=== PATIENT | female | born 1975 | race Caucasian/White ===

== ENCOUNTER 2017-12-02 17:44 | Emergency (ER) | payer OTHER, SELFPAY ==
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
== END 2017-12-02 19:53 | disposition home or self-care (01) ==
LOC: ERS 17:44
DX: R07.89 Other chest pain (principal); F17.210 Nicotine dependence, cigarettes, uncomplicated; I10 Essential (primary) hypertension; Z86.73 Personal history of transient ischemic attack (TIA), and cerebral infarction without residual deficits; V43.52XA Car driver injured in collision with other type car in traffic accident, initial encounter; W22.11XA Striking against or struck by driver side automobile airbag, initial encounter
CPT/HCPCS: 71046

== ENCOUNTER 2017-12-26 22:34 | Inpatient (IN) | payer SELFPAY ==
[2017-12-26 23:25] LABS: #Lymphocytes 2.9 thou/uL (1.20-3.40); #Monocytes 0.9 thou/uL (0.11-0.59); #Neutrophils 3.7 thou/uL (1.40-6.50); %Basophils 0.5 % (0.0-1.0); %Eosinophils 0.4 % (0.0-10.0); %Lymphocytes 38.9 % (21.0-51.0); %Monocytes 11.6 % (0.0-10.0); %Neutrophils 48.6 % (42.0-75.0); Hemoglobin 14.2 g/dL (12.0-16.0); Mean Corpuscular HGB CONC 32.8 g/dL (32.0-36.0); Mean Corpuscular Hemoglobin 30.3 pg (27.0-31.0); Mean Corpuscular Volume 92.3 fl (81.0-99.0); Mean Platelet Volume 7.4 fL (7.4-10.4); Platelet Count 220 thou/uL (130-400); RBC Distribution Width 11.6 % (11.5-14.5); Red Blood Cell (RBC) Count 4.69 mill/uL (4.20-5.40); White Blood Cell (WBC) Count 7.5 thou/uL (4.8-10.8)
--- NOTE | 2017-12-26 23:33 | RAD ---
PORTABLE CHEST: Comparison: 06-16-15 FINDINGS: Heart size and mediastinum are within normal limits. The lungs are clear of infiltrates. There are no significant bony findings. IMPRESSION: No active intrathoracic disease. POS: [facility]
[2017-12-26 23:36] LABS: Bilirubin Negative (Negative); Blood, Urine Moderate (Negative); Clarity CLOUDY (Clear); Glucose, Urine (Dipstick) Negative (Negative); Leukocyte Negative (Negative); Nitrite Negative (Negative); Protein, Urine (Dipstick) Negative (Neg-Trace); Specific Gravity, Urine 1.012 (1.002-1.036); Urobilinogen 0.2 mg/dL (0.2-1.0)
[2017-12-26 23:39] LABS: Bacteria/HPF 1+ HPF (None Seen); Hyaline Casts/LPF 0-3 HYALINE CAST LPF (0-3 Hyaline); Pathc Cast-AUWi Flag 0.54 (0-2.49); WBC/HPF 0-3 HPF (0-3)
[2017-12-26 23:47] LABS: ALT (SGPT) 26 U/L (8-55); AST (SGOT) 25 U/L (5-34); Alkaline Phosphatase 32 U/L (40-150); Anion Gap 11 mmol/L (10-20); BUN (Urea Nitrogen) 10 mg/dL (7.0-18.7); Bilirubin, Total 0.5 mg/dL (0.2-1.2); Calc. Creatinine Clearance 0 mL/min (70-130); Calcium 8.7 mg/dL (7.8-10.44); Carbon Dioxide 27 mmol/L (22-29); Chloride 99 mmol/L (98-107); Estimated GFR-MDRD 60; Globulin 2.9 g/dL (2.4-3.5); Glucose 128 mg/dL (70-105); Lipase 20 U/L (8-78); Potassium 3.5 mmol/L (3.5-5.1); Protein, Total 6.9 g/dL (6.0-8.3); Sodium 133 mmol/L (136-145)
[2017-12-26] MEDS ORDERED: Water For Inject, Bacteriostat 30 ML ONE (23:59)
[2017-12-26] MEDS ORDERED: methylPREDNISolone Sod Succ/PF 125 MG/2 ML VIAL ONE (23:59)
[2017-12-27 00:25] LABS: CKMB 1.8 ng/mL (0-6.6); Troponin I Less than 0.010 ng/mL (< 0.028)
[2017-12-27] MEDS ORDERED: Magnesium Sulfate 2 GM/100 ML BAG ONE (00:39)
[2017-12-27] MEDS ORDERED: Acetaminophen 325 MG TAB PO PRN ×2 (06:12→08:12)
[2017-12-27] MEDS ORDERED: Ondansetron ODT 4 MG TAB SL PRN (06:12)
[2017-12-27] MEDS ORDERED: Sodium Chloride 0.45% 1,000 ML IV SCH (06:15)
[2017-12-27] MEDS ORDERED: Benzonatate 100 MG CAP PO PRN (08:12)
[2017-12-27] MEDS ORDERED: HYDROcodone/Acetaminophen 5/325 mg Tablet PO PRN (08:12)
[2017-12-27] MEDS ORDERED: Artificial Tears 18 DROP/0.9 ML EA EYE PRN (08:12)
[2017-12-27] MEDS ORDERED: Milk Of Magnesia 30 ML UDCUP PO PRN (08:12)
[2017-12-27] MEDS ORDERED: Chloraseptic Spray 180 ml Bottle PO PRN (08:12)
[2017-12-27] MEDS ORDERED: Sodium Chloride 0.65% Nasal 44 ML BOT EA NARE PRN (08:12)
[2017-12-27] MEDS ORDERED: Eucerin (Mineral Oil/Petrolatum,White) 30 gm Jar TOP PRN (08:12)
[2017-12-27] MEDS ORDERED: hydrALAZINE 20 MG/ML VIAL SLOW IVP PRN (08:12)
[2017-12-27] MEDS ORDERED: Ondansetron ODT 4 MG TAB PO PRN (08:12)
[2017-12-27] MEDS ORDERED: Diabetic Tussin 200 MG/10 ML UDCUP PO PRN (08:12)
[2017-12-27] MEDS ORDERED: Loratadine 10 MG TAB PO PRN (08:12)
[2017-12-27] MEDS ORDERED: Zolpidem Tartrate 5 MG TAB PO PRN (08:12)
[2017-12-27] MEDS ORDERED: Mag-Al 1200 mg/1200 mg/30 ML UDCUP PO PRN (08:12)
[2017-12-27] MEDS ORDERED: Ondansetron HCl/PF 4 MG/2 ML Vial IVP PRN (08:12)
[2017-12-27] MEDS ORDERED: Loperamide HCl 2 MG CAP PO PRN (08:12)
[2017-12-27] MEDS ORDERED: Senokot 8.6 MG TAB PO PRN (08:12)
[2017-12-27] MEDS ORDERED: methylPREDNISolone Sod Succ/PF 125 MG/2 ML VIAL IVP SCH (09:00)
[2017-12-27] MEDS ORDERED: Enoxaparin Sodium 40 MG/0.4 ML SYRINGE ONE (10:08)
[2017-12-27] MEDS ORDERED: Famotidine 20 MG TAB ONE (10:08)
[2017-12-27] MEDS ORDERED: Famotidine/PF 20 mg/2ml Vial ONE (10:09)
[2017-12-27] MEDS: Famotidine 20 MG TAB PO SCH ×2 (13:58→20:46)
[2017-12-27] MEDS: Sodium Chloride 0.9% 1,000 ML IV SCH ×2 (13:58→16:23)
[2017-12-27] MEDS: guaiFENesin ER 600 MG TAB PO SCH ×2 (13:58→20:47)
[2017-12-27] MEDS: Enoxaparin Sodium 40 MG/0.4 ML SYRINGE SC SCH (13:58)
--- NOTE | 2017-12-27 15:02 | HP ---
PRIMARY CARE PHYSICIAN: [facility]. REASON FOR ADMISSION: Asthma exacerbation. HISTORY OF PRESENT ILLNESS: A 42-year-old female who has history of hypertension, morbid obesity, to bacco abuse disorder and asthma who came to the emergency room with complaint of cough, vomiting, and shortness of breath. Patient reports that she is sick for the last 3 days. She is getting coughing spell and after that she vomits. She had 2 time vomiting on Tuesday and for the last 3 days becaus e of coughing spells, she was not able to sleep. Patient was getting chest wall pain, which was rela katelyn with coughing and because of coughing spells, it was also hurting in her abdomen and lower back. The patient denies any nasal congestion. She denies any runny nose. She denies any sore throat. S he denies any flu-like illness. She denies any fever or chills. She denies any orthopnea, PND or le g swelling. She denies any recent travel or sick exposure. When she came to emergency room, she was hypotensive. Her blood pressure lowest was 80/40 and she wa s also hypoxic with saturation 86% on room air, but then both hypotension and hypoxia rapidly improve d in the emergency room. Recheck D-dimer, which was negative. This patient denies any pleuritic lisa st pain. She denies any hemoptysis. She denies any calf tenderness. She denies any immobilization. REVIEW OF SYSTEMS: The following complete review of systems was negative, unless otherwise mentioned in the HPI or below: Constitutional: Weight loss or gain, ability to conduct usual activities. Skin: Rash, itching. Eyes: Double vision, pain. ENT/Mouth: Nose bleeding, neck stiffness, pain, tenderness. Cardiovascular: Palpitations, dyspnea on exertion, orthopnea. Respiratory: Shortness of breath, wheezing, cough, hemoptysis, fever or night sweats. Gastrointestinal: Poor appetite, abdominal pain, heartburn, nausea, vomiting, constipation, or diarr hea. Genitourinary: Urgency, frequency, dysuria, nocturia. Musculoskeletal: Pain, swelling. Neurologic/Psychiatric: Anxiety, depression. Allergy/Immunologic: Skin rash, bleeding tendency. Please see my HPI for pertinent positive and negative. All other review of system reviewed and negat rashard except as mentioned in the HPI. PAST MEDICAL HISTORY: Hypertension, asthma, morbid obesity, tobacco abuse disorder. PAST SURGICAL HISTORY: Hysterectomy, and cholecystectomy. PAST PSYCHIATRIC HISTORY: Reviewed and negative. SOCIAL HISTORY: Patient is . She smokes about half pack per day. She denies any other illic it drug abuse. She denies any alcohol abuse. She is working in [employer]. FAMILY HISTORY: No strong family history of premature coronary artery disease, stroke or cancer. ALLERGIES: AZITHROMYCIN. EMERGENCY ROOM COURSE: The patient is given IV fluid and respiratory therapy. CURRENT HOME MEDICATIONS: Aspirin 81 mg p.o. daily, Prinzide one tablet daily, lovastatin 10 mg p.o. daily. PHYSICAL EXAMINATION: VITAL SIGNS: On arrival, blood pressure lowest was 80/40, saturation initially 86% on room air and t hen 94% on room air, blood pressure improved to 129/83, pulse 91, temperature 98.5. GENERAL: Patient is currently alert, awake, no obvious acute distress. HEAD: Normocephalic, atraumatic. EYES: Pupils round, reactive to light. Extraocular muscle intact. ENT: Oropharynx within normal limits. Moist mucous membranes. No oral lesions. No pharyngeal eryt merly, no exudates. NECK: Supple, no JVD, no thyromegaly, no carotid bruit, no jugular venous distention. LUNGS: Clear to auscultation without any rhonchi or rales. CARDIAC: S1, S2 regular. No murmur, no gallop, no rub. ABDOMEN: Soft. Morbid obesity limiting examination. Bowel sounds present, nontender, nondistended. No organomegaly, no mass, no suprapubic tenderness, no distention. BACK: Unremarkable, no CVA tenderness. EXTREMITIES: Upper extremity, passive movement of all joints are normal. Lower extremity, no edema . Good peripheral pulsation. SKIN: No skin rash. HEMATOLOGICAL: No lymphadenopathy. PSYCHIATRIC: Normal affect. SIGNIFICANT LABORATORY DATA: 1. CBC: WBC 7.5, hemoglobin 14.2, platelet 220. D-dimer less than 0.27. BMP: Sodium 133, potassi um 3.5, chloride 99, carbon dioxide 27, anion gap 11, BUN 10, creatinine 1.01, glucose 128, calcium 8 .7 2. LFT: AST 25, ALT 26, alkaline phosphatase 32, albumin 4.0, lipase 20. Cardiac enzymes negative x1. BNP less than 10. Urinalysis, microscopic hematuria. ASSESSMENT AND PLAN: 1. Acute asthma exacerbation with possible bronchitis. The patient will be treated with Mucinex 600 mg twice daily, albuterol nebulization q.6 hourly and p.r.n. basis, Singulair 10 mg p.o. daily, Dule ra 2 puffs inhalation b.i.d., Solu-Medrol 40 mg IV q.6 hourly, empiric antibiotic therapy with levofl oxacin and IV fluid and we will monitor closely. 2. Acute hypoxic respiratory failure, resolved in the emergency room. 3. Acute hypotension, resolved with IV fluids. 4. Hypertension. Currently, the patient has low blood pressure and that is why we will hold on anti hypertensive medication, but once blood pressure permits, then we will start lisinopril with hydrochl orothiazide, probably tomorrow morning. 5. Morbid obesity. Dietary education given, weight loss education given. Healthy lifestyle measure s discussed with the patient. 6. Tobacco abuse disorder. Smoking cessation counseling given. Healthy lifestyle measures discusse d with the patient. 7. Deep venous thrombosis prophylaxis, Lovenox 40 mg subcutaneously daily. 8. Gastrointestinal prophylaxis. Pepcid 20 mg p.o. b.i.d. 9. Code status: The patient is full code. Patient's is surrogate decision maker. Disposition and plan based on clinical course. We are expecting patient's stay in hospital at least 24-48 hours. Plan of care discussed with the patient in detail.
[2017-12-27] MEDS: Albuterol Sulfate 2.5 mg/3 ml Neb NEB SCH ×2 (18:11→19:50)
[2017-12-27] MEDS: Mometasone/Formoterol 120 PUFF INHALER INH SCH (19:51)
[2017-12-27] MEDS ORDERED: Montelukast Sodium 10 mg Tablet PO SCH (21:00)
[2017-12-27] MEDS ORDERED: Lovastatin 20 MG TAB PO SCH (21:00)
[2017-12-28] MEDS: Albuterol Sulfate 2.5 mg/3 ml Neb NEB SCH ×2 (01:15→08:12)
[2017-12-28] MEDS: Sodium Chloride 0.9% 1,000 ML IV SCH (01:56)
[2017-12-28 03:02] VITALS: BMI 41.8
[2017-12-28 06:04] LABS: #Lymphocytes 1.7 thou/uL (1.20-3.40); %Basophils 0.1 % (0.0-1.0); %Eosinophils 0.1 % (0.0-10.0); %Lymphocytes 11.8 % (21.0-51.0); %Monocytes 6.8 % (0.0-10.0); %Neutrophils 81.3 % (42.0-75.0); Mean Corpuscular HGB CONC 32.7 g/dL (32.0-36.0); Mean Corpuscular Hemoglobin 30.6 pg (27.0-31.0); Mean Corpuscular Volume 93.5 fl (81.0-99.0); Mean Platelet Volume 7.5 fL (7.4-10.4); Platelet Count 254 thou/uL (130-400); RBC Distribution Width 11.7 % (11.5-14.5); Red Blood Cell (RBC) Count 4.57 mill/uL (4.20-5.40); White Blood Cell (WBC) Count 14.8 thou/uL (4.8-10.8)
[2017-12-28 06:25] LABS: Anion Gap 12 mmol/L (10-20); BUN (Urea Nitrogen) 10 mg/dL (7.0-18.7); Calc. Creatinine Clearance 156 mL/min (70-130); Calcium 8.9 mg/dL (7.8-10.44); Carbon Dioxide 26 mmol/L (22-29); Chloride 106 mmol/L (98-107); Estimated GFR-MDRD 83; Glucose 99 mg/dL (70-105); Sodium 140 mmol/L (136-145)
[2017-12-28 07:43] VITALS: TEMP 98.5
[2017-12-28] MEDS: Enoxaparin Sodium 40 MG/0.4 ML SYRINGE SC SCH (08:09)
[2017-12-28] MEDS: Famotidine 20 MG TAB PO SCH (08:10)
[2017-12-28] MEDS: guaiFENesin ER 600 MG TAB PO SCH (08:11)
[2017-12-28 08:12] VITALS: BP 135/84
[2017-12-28] MEDS: Mometasone/Formoterol 120 PUFF INHALER INH SCH (08:12)
[2017-12-28] MEDS ORDERED: Hydrochlorothiazide 25 MG TAB PO SCH (09:00)
[2017-12-28] MEDS ORDERED: Aspirin 81 mg Enteric Coated Tablet PO SCH (09:00)
[2017-12-28] MEDS ORDERED: Lisinopril 10 MG TAB PO SCH (09:00)
--- NOTE | 2017-12-28 10:36 | PDOC.PN ---
- Subjective Encounter Start Date: 12/28/17 Encounter Start Time: 08:00 -: old records requested/rev Patient seen and examined. No new complaints. No overnight events - Objective Resuscitation Status: Resuscitation Status FULL:Full Resuscitation MAR Reviewed: Yes Vital Signs & Weight: Vital Signs (12 hours) Temp Pulse Resp BP BP Pulse Ox 12/28/17 08:12 75 16 95 12/28/17 08:10 135/84 12/28/17 08:00 98.5 F 75 16 92 L 12/28/17 07:43 98.5 F 77 16 135/85 92 L 12/28/17 04:50 98.2 F 78 16 128/87 98 12/28/17 01:15 85 16 94 L 12/28/17 00:16 98.2 F 85 16 127/97 H 92 L Weight Weight 228 lb 14.4 oz I&O: 12/27/17 12/28/17 12/29/17 06:59 06:59 06:59 Intake Total 650 480 Balance 650 480 Result Diagrams: 12/28/17 04:44 12/28/17 04:44 EKG Reviewed by me: Yes (nsr) Phys Exam - Physical Examination Constitutional: NAD HEENT: PERRLA, moist MMs, sclera anicteric Neck: no JVD, supple Respiratory: no wheezing, no rales, no rhonchi Cardiovascular: RRR, no significant murmur, no rub Gastrointestinal: soft, non-tender, no distention, positive bowel sounds Musculoskeletal: no edema, pulses present Neurological: non-focal, normal sensation, moves all 4 limbs Psychiatric: normal affect, A&O x 3 Skin: no rash, normal turgor Dx/Plan (1) Asthma exacerbation Code(s): J45.901 - UNSPECIFIED ASTHMA WITH (ACUTE) EXACERBATION Status: Acute (2) Hyperlipidemia Code(s): E78.5 - HYPERLIPIDEMIA, UNSPECIFIED Status: Chronic (3) Morbid obesity Code(s): E66.01 - MORBID (SEVERE) OBESITY DUE TO EXCESS CALORIES Status: Chronic (4) Tobacco abuse Code(s): Z72.0 - TOBACCO USE Status: Chronic (5) Hypotension Status: Resolved (6) Hypoxia Code(s): R09.02 - HYPOXEMIA Status: Resolved (7) HTN (hypertension) Code(s): I10 - ESSENTIAL (PRIMARY) HYPERTENSION Status: Chronic - Plan cont current plan of care, continue antibiotics, respiratory therapy * medication reviewed as below * symptomatic treatment * stable for discharge * see discharge ana. Review of Systems - Review of Systems Constitutional: negative: fever, chills, sweats, weakness, malaise, other Respiratory: negative: Cough, Dry, Shortness of Breath, Hemoptysis, SOB with Excertion, Pleuritic Pain, Sputum, Wheezing Cardiovascular: negative: chest pain, palpitations, orthopnea, paroxysmal nocturnal dyspnea, edema, light headedness, other Gastrointestinal: negative: Nausea, Vomiting, Abdominal Pain, Diarrhea, Constipation, Melena, Hematochezia, Other Genitourinary: negative: Dysuria, Frequency, Incontinence, Hematuria, Retention , Other Musculoskeletal: negative: Neck Pain, Shoulder Pain, Arm Pain, Back Pain, Hand Pain, Leg Pain, Foot Pain, Other Skin: negative: Rash, Lesions, Trey, Bruising, Other - Medications/Allergies Allergies/Adverse Reactions: Allergies Allergy/AdvReac Type Severity Reaction Status Date / Time azithromycin [From Zithromax] AdvReac Intermediate STOMACH Verified 10/03/17 11: 42 CRAMPING Medications: Current Medications Acetaminophen (Tylenol) 650 mg PO Q4H PRN PRN Reason: Headache/Fever or Pain Hydrocodone Bitart/Acetaminophen ([place] 5/325) 1 tab PO Q4H PRN PRN Reason: Moderate Pain (4-6) Al Hydroxide/Mg Hydroxide (Maalox) 30 ml PO Q6H PRN PRN Reason: Heartburn or Indigestion Albuterol Sulfate (Ventolin) 2.5 mg NEB T4LL-BC [facility] Last Admin: 12/28/17 08:12 Dose: 2.5 mg Artificial Tears (Tears Naturale) 0 drop EA EYE PRN PRN PRN Reason: Dry Eyes Aspirin (Ecotrin) 81 mg PO DAILY [facility] Last Admin: 12/28/17 08:11 Dose: 81 mg Benzonatate (Tessalon) 100 mg PO Q4H PRN PRN Reason: Cough Enoxaparin Sodium (Lovenox) 40 mg SC 0900 [facility] Last Admin: 12/28/17 08:09 Dose: 40 mg Famotidine (Pepcid) 20 mg PO BID [facility] Last Admin: 12/28/17 08:10 Dose: 20 mg Guaifenesin (Robitussin Sf) 200 mg PO Q4H PRN PRN Reason: Cough Guaifenesin (Mucinex) 600 mg PO Q12HR [facility] Last Admin: 12/28/17 08:11 Dose: 600 mg Hydralazine HCl (Apresoline) 10 mg SLOW IVP Q4H PRN PRN Reason: Systolic BP > 180 Hydrochlorothiazide (Hydrochlorothiazide) 12.5 mg PO DAILY [facility] Last Admin: 12/28/17 08:10 Dose: 12.5 mg Levofloxacin 500 mg/ Device 100 mls @ 100 mls/hr IVPB 0100 [facility] Last Admin: 12/28/17 01:56 Dose: 100 mls Sodium Chloride (Normal Saline 0.9%) 1,000 mls @ 125 mls/hr IV .Q8H [facility] Last Admin: 12/28/17 01:56 Dose: 1,000 mls Lisinopril (Zestril) 10 mg PO DAILY [facility] Last Admin: 12/28/17 08:10 Dose: 10 mg Loperamide HCl (Imodium) 2 mg PO PRN PRN PRN Reason: Diarrhea/Loose Stools Loratadine (Claritin) 10 mg PO DAILYPRN PRN PRN Reason: Sinus Symptoms Lovastatin (Mevacor) 10 mg PO HS [facility] Last Admin: 12/27/17 20:47 Dose: 10 mg Magnesium Hydroxide (Milk Of Magnesium) 30 ml PO DAILYPRN PRN PRN Reason: Constipation Methylprednisolone Sodium Succinate (Solu-Medrol) 40 mg IVP 0400,1000,1600, 2200 [facility] Last Admin: 12/27/17 16:23 Dose: 40 mg Mineral Oil/White Petrolatum (Eucerin Cream) 0 gm TOP BIDPRN PRN PRN Reason: Dry Skin Mometasone Furoate/Formoterol Fumar (Dulera 200 Mcg/5 Mcg Inhaler) 2 puff INH BID-RT [facility] Last Admin: 12/28/17 08:12 Dose: 2 puff Montelukast Sodium (Singulair) 10 mg PO QPM [facility] Last Admin: 12/27/17 20:47 Dose: 10 mg Ondansetron HCl (Zofran Odt) 4 mg PO Q6H PRN PRN Reason: Nausea/Vomiting Ondansetron HCl (Zofran) 4 mg IVP Q6H PRN PRN Reason: Nausea/Vomiting Phenol (Chloraseptic [place] 180 Ml Bot) 0 ml PO PRN PRN PRN Reason: Sore Throat Senna (Senokot) 2 tab PO HSPRN PRN PRN Reason: Constipation Sodium Chloride ([place] Nasal [place] 0.65%) 0 ml EA NARE QIDPRN PRN PRN Reason: Nasal Congestion Zolpidem Tartrate (Ambien) 5 mg PO HSPRN PRN PRN Reason: Insomnia
--- NOTE | 2017-12-28 11:28 | DIS ---
DATE OF ADMISSION: 12/27/2017 DATE OF DISCHARGE: 12/28/2017 PRIMARY CARE PHYSICIAN: [facility]. DISCHARGE DISPOSITION: Home. PRIMARY DISCHARGE DIAGNOSES: 1. Asthma exacerbation. 2. Hypoxia and hypotension, resolved. SECONDARY DISCHARGE DIAGNOSES: History of hypertension, dyslipidemia, morbid obesity, tobacco abuse disorder, asthma. PRIMARY PROCEDURE/OPERATION: None. RADIOLOGICAL INVESTIGATION: Chest x-ray normal. SIGNIFICANT LABORATORY DATA: Hemoglobin 14.0. D-dimer less than 0.27. BMP normal. LFT normal. Ca rdiac enzymes negative. BNP less than 10. Urinalysis normal. Influenza screen negative. DISCHARGE MEDICATIONS: Aspirin 81 mg p.o. daily, Tessalon 100 mg q.4 hourly p.r.n., Pepcid 20 mg p.o . b.i.d., Mucinex 600 mg twice daily, Levaquin 500 mg p.o. daily for 7 days, Prinzide 10/12.5 one tab let p.o. daily, lovastatin 10 mg p.o. at bedtime, Dulera 2 puffs inhalation b.i.d., Singulair 10 mg p .o. daily, prednisone 40 mg p.o. daily for 7 days. CONTRAINDICATIONS: None. CODE STATUS: FULL CODE. INPATIENT INFORMATICS NURSE: None. ALLERGIES: AZITHROMYCIN. DISCHARGE PLAN: Post hospital, patient will follow up with primary care physician in 1 week. HOSPITAL COURSE: A 42-year-old female who has ongoing tobacco abuse disorder as well as underlying h istory of asthma. She was having coughing spell and she was hurting in her chest as well as she was getting gradual increase in shortness of breath. In the emergency room, she was wheezing in both cipriano gs and she was found with asthma exacerbation. She had chest x-ray which was normal. We did D-dimer and ruled out thromboembolic disorder. Patient was admitted in the hospital and she was treated wit h steroid, DuoNeb therapy, Dulera, Mucinex, and empiric antibiotic therapy with levofloxacin. Next d ay, patient's condition significantly improved. She wanted to go home today. She is on room air, am bulatory, tolerating p.o. well. We provided counseling to avoid smoking. The patient is seen and examined at bedside today. Please see my progress note from today for furthe r details.
--- NOTE | 2017-12-31 16:59 | EKG ---
Test Reason : Blood Pressure : / mmHG Vent. Rate : 076 BPM Atrial Rate : 076 BPM P-R Int : 132 ms QRS Dur : 080 ms QT Int : 378 ms P-R-T Axes : 042 049 039 degrees QTc Int : 425 ms Normal sinus rhythm Normal ECG Confirmed by ROSANNA CHASE ([id number]), newspaper photo editor YENY RICHARD ([id number]) on 12/31/2017 4:58:34 PM Referred By: RENA Confirmed By:ROSANNA CHASE
== END 2017-12-28 11:23 | disposition home or self-care (01) | DRG 202 ==
LOC: ERS 22:34 → ERHOLD 12-27 02:07 → 2SE 12-27 13:44
PROVIDERS: ADMIT Family Medicine; ATTEND Family Medicine
DX: J45.901 Unspecified asthma with (acute) exacerbation (principal); J96.01 Acute respiratory failure with hypoxia; E66.01 Morbid (severe) obesity due to excess calories; I95.9 Hypotension, unspecified; Z68.41 Body mass index [BMI] 40.0-44.9, adult; F17.210 Nicotine dependence, cigarettes, uncomplicated; E78.5 Hyperlipidemia, unspecified; I10 Essential (primary) hypertension
CPT/HCPCS: 36415; 71045; 80048; 80053; 81003; 81015; 82553; 83690; 83880; 84484; 85025; 85379; 93005; 94640; 96361; 96365; 96366; 96372; 96375; 96376; 99406; J1650; J1956; J2920; J2930; J3475; J7611; J7620; S0028

== ENCOUNTER 2018-09-04 23:02 | Emergency (ER) | payer SELFPAY ==
--- NOTE | 2018-09-04 23:51 | RAD ---
PORTABLE CHEST ONE VIEW: 09/04/2018 10:38 p.m. HISTORY: Asthma. FINDINGS: The heart size is borderline. The lungs are expanded without focal areas of consolidation, pneumotho races, laci pulmonary edema, or pleural effusions. IMPRESSION: No acute process. POS: [facility]
[2018-09-05 00:01] LABS: #Basophils 0.1 thou/uL (0.0-0.2); #Eosinphils 0.1 thou/uL (0.0-0.7); #Lymphocytes 3.3 thou/uL (1.20-3.40); #Monocytes 0.5 thou/uL (0.11-0.59); #Neutrophils 4.4 thou/uL (1.40-6.50); %Basophils 0.7 % (0.0-1.0); %Eosinophils 1.2 % (0.0-10.0); %Lymphocytes 39.5 % (21.0-51.0); %Monocytes 6.4 % (0.0-10.0); %Neutrophils 52.2 % (42.0-75.0); Hemoglobin 12.9 g/dL (12.0-16.0); Mean Corpuscular Hemoglobin 30.2 pg (27.0-31.0); Mean Corpuscular Volume 91.5 fL (78.0-98.0); Mean Platelet Volume 7.4 fL (7.4-10.4); Platelet Count 296 thou/uL (130-400); Red Blood Cell (RBC) Count 4.28 mill/uL (4.20-5.40); White Blood Cell (WBC) Count 8.4 thou/uL (4.8-10.8)
[2018-09-05 00:20] LABS: ALT (SGPT) 22 U/L (8-55); AST (SGOT) 24 U/L (5-34); Albumin 4.4 g/dL (3.5-5.0); Alkaline Phosphatase 38 U/L (40-150); Anion Gap 11 mmol/L (10-20); BUN (Urea Nitrogen) 15 mg/dL (7.0-18.7); Bilirubin, Total 0.7 mg/dL (0.2-1.2); Calc. Creatinine Clearance 0 mL/min (70-130); Carbon Dioxide 27 mmol/L (22-29); Chloride 104 mmol/L (98-107); Estimated GFR-MDRD 59; Glucose 112 mg/dL (70-105); Potassium 3.7 mmol/L (3.5-5.1); Protein, Total 7.4 g/dL (6.0-8.3); Sodium 138 mmol/L (136-145)
[2018-09-05 00:25] LABS: Troponin I Less than 0.010 ng/mL (< 0.028)
[2018-09-05 00:29] LABS: CKMB 10.3 ng/mL (0-6.6)
[2018-09-05] MEDS ORDERED: predniSONE 20 MG TAB ONE (01:38)
== END 2018-09-05 02:45 | disposition home or self-care (01) ==
LOC: ERS 23:02
DX: J45.909 Unspecified asthma, uncomplicated (principal); I10 Essential (primary) hypertension; F17.210 Nicotine dependence, cigarettes, uncomplicated
CPT/HCPCS: 71045; 80053; 82553; 83880; 84484; 85025; 93005; J7506

== ENCOUNTER 2019-05-11 06:08 | Emergency (ER) | payer SELFPAY | END 2019-05-11 06:22 | disposition home or self-care (01) | LOC: ERS 06:08 | DX: L25.9 Unspecified contact dermatitis, unspecified cause (principal); I10 Essential (primary) hypertension; J45.909 Unspecified asthma, uncomplicated; F17.210 Nicotine dependence, cigarettes, uncomplicated; Z79.51 Long term (current) use of inhaled steroids; Z87.01 Personal history of pneumonia (recurrent); Z79.899 Other long term (current) drug therapy | CPT/HCPCS: 99283 ==

== ENCOUNTER 2019-06-20 20:14 | Emergency (ER) | payer BC ==
[2019-06-20] MEDS ORDERED: Ketorolac Tromethamine 30 MG/ML VIAL ONE (20:45)
--- NOTE | 2019-06-20 21:27 | RAD ---
LEFT KNEE: 06/20/19 Four views. HISTORY: Knee pain. Medial and lateral joint spaces are normally maintained. Mild degenerative spurring is noted. No frac ture or acute abnormality. There is evidence of joint effusion in the suprapatellar region. IMPRESSION: Mild degenerative changes with evidence of joint effusion. POS: [facility]
== END 2019-06-20 21:37 | disposition home or self-care (01) ==
LOC: ERS 20:14
DX: M25.562 Pain in left knee (principal); J45.909 Unspecified asthma, uncomplicated; F17.210 Nicotine dependence, cigarettes, uncomplicated; Z86.73 Personal history of transient ischemic attack (TIA), and cerebral infarction without residual deficits; Z87.01 Personal history of pneumonia (recurrent); Z79.899 Other long term (current) drug therapy
CPT/HCPCS: 96372; J1885

== ENCOUNTER 2023-03-29 07:32 | Emergency (ER) | payer BC | END 2023-03-29 08:40 | disposition home or self-care (01) | LOC: ERS 07:32 | DX: N61.1 Abscess of the breast and nipple (principal) | CPT/HCPCS: 99282 ==

== ENCOUNTER 2023-07-31 05:57 | Emergency (ER) | payer BC | END 2023-07-31 07:14 | disposition home or self-care (01) | LOC: ERS 05:57 | DX: N61.0 Mastitis without abscess (principal); I10 Essential (primary) hypertension; Z87.891 Personal history of nicotine dependence; Z79.899 Other long term (current) drug therapy | CPT/HCPCS: 99283 ==